=== PATIENT | male | born 2005 | race Caucasian/White ===

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

== ENCOUNTER 2025-07-04 16:40 | Emergency (ER) | payer OTHER, SELFPAY ==
[2025-07-04 16:41] VITALS: BP 113/83; PULSE 103; RESP 14; TEMP 36.6; O2SAT 98
--- NOTE | 2025-07-04 16:44 | ED.EXTPRO ---
HPI - Extremity Problem General Chief complaint: Extremity Problem,Nontraumatic Stated complaint: ingrown toe nail Time Seen by Provider: 07/04/25 16:44 Source: patient Mode of arrival: ambulatory Limitations: no limitations History of Present Illness HPI Narrative: Patient is a 20-year-old male with a right great toe slight erythema and pain over last week. He is been cutting on the edges due to the pain and trying to remove some of the nail. All in all, the patient has great toe redness on the distal tip for the past week. MD Complaint: extremity pain (Right great toe distal tip) Onset (ago): week(s) (1) Pain Consistency: constant Location: right, lower extremity and toe (Great toe) Severity scale (1-10): 5 Quality: stabbing and sharp Radiation: distal Relieving factors: nothing Exacerbating factors: weight bearing, walking and palpation Associated symptoms: denies other symptoms Context: recent travel and recent surgery/procedure Related Data Allergies Allergy/AdvReac Type Severity Reaction Status Date / Time fluoxetine Allergy Unknown Unknown Verified 07/04/25 16:42 Review of Systems Review of Systems: All systems reviewed & are unremarkable except as noted in HPI and below Constitutional: Constitutional: Reports no additional constitutional complaints Eyes: Eyes: Reports no additional eye complaints ENT: Reports system reviewed and no additional complaints, except as documented Cardiovascular: Cardiovascular: Reports no additional cardiovascular complaints Respiratory: Respiratory: Reports no additional respiratory complaints Gastrointestinal: Gastrointestinal: Reports no additional gastrointestinal complaints Genitourinary: Genitourinary: Reports no additional male genitourinary complaints Musculoskeletal: Musculoskeletal: Reports no additional musculoskeletal complaints Integumentary/Breasts: Skin/Breast: Reports system reviewed and no additional complaints, except as docu Neurologic: Reports system reviewed and no additional complaints, except as documented Psychiatric: Psychiatric: Reports no additional psychiatric complaints Endocrine: Endocrine: Reports no additional endocrine complaints Hematologic/Lymphatic: Hematologic/Lymphatic: Reports no additional hematologic/lymphatic complaints Allergic/Immunologic: Allergic/Immunologic: Reports no additional allergic/immunologic complaints Exam Const: General: healthy appearing Nutritional Appearance: well nourished Orientation/consciousness: patient oriented x3 HENMT: Head: normal to inspection Ears: external ears normal Face/Nose/Sinus: Normal external nose present Eyes: Conjunctivae: conjunctivae normal Pupils: Equal, round and reactive pupils present EOM: EOMs intact bilaterally Neck: Neck: normal visual inspection Chest: Chest palpation & inspection: normal inspection of the chest Resp: Effort & Inspection: normal respiratory effort, not labored and no retractions Auscultation: clear to auscultation bilaterally, no crackles and no rales Cardio: Rate: regular rate Rhythm: regular rhythm Heart sounds: no murmurs GI: Inspection: non-distended GI Palp: Yes Soft to palpation, Yes Tenderness to palpation present (GI) and Yes Guarding due to palpation present (GI) Auscultation: normal bowel sounds and Hypoactive bowel sounds present : General: Yes bladder normal to palpation Back/Spine/Pelvis: Back: no CVA tenderness Skin: General skin exam: normal color Rashes: no rashes Wounds: no wounds Neuro: General: patient oriented x3, moves all extremities and no meningeal signs Extrem: General: abnormal to inspection, no clubbing, cyanosis or edema and no pedal edema Other: Right great toe has erythema at the distal tip and around the edges distally of the nail with ingrown nail noted bilaterally and mild erythema without pus drainage or any major signs of infection at this time besides the cellulitis of the distal tip Psych: Mental Status: mental status grossly normal Affect: normal affect Attitude: cooperative Course Vital Signs Vital signs: Vital Signs Temperature 36.6 C 07/04/25 16:41 Pulse Rate 103 H 07/04/25 16:41 Respiratory Rate 14 07/04/25 16:41 Blood Pressure 113/83 07/04/25 16:41 Pulse Oximetry 98 07/04/25 16:41 Oxygen Delivery Room Air 07/04/25 16:41 Temperature 36.6 C 07/04/25 16:41 Pulse Rate 103 H 07/04/25 16:41 Respiratory Rate 14 07/04/25 16:41 Blood Pressure 113/83 07/04/25 16:41 Pulse Oximetry 98 07/04/25 16:41 Oxygen Delivery Room Air 07/04/25 16:41 MDM MDM Narrative Medical decision making narrative: Patient is a 20-year-old male with a right grade 2 ingrown toenail with localized redness and inflammation over the past week. We discussed about him seeing a associate project manager to have this area cleared and removed. Further we will do Augmentin for antibiotic coverage at this time. Differential Diagnosis Differential Diagnosis: Ingrown toenail, cellulitis Discharge Plan Discharge Clinical Impression: Ingrowing toenail of right foot Cellulitis of great toe Qualifiers: Laterality: right Qualified Code(s): L03.031 - Cellulitis of right toe Patient Disposition: Home Condition: Stable Instructions: Antibiotic Form, Ingrown Nail (ED) Additional Instructions: Please follow-up with the primary doctor in the next week. You will need a referral to a associate project manager that can remove toenails for ingrown toenails. Patient Language: Telugu Prescriptions: New amoxicillin-pot clavulanate [Augmentin] 500-125 mg tablet 1 tablet PO BID 7 Days Qty: 14 0RF Follow-up/Referrals: Andrew,OMAIRA Iglesias [Primary Care Provider] Time of Disposition: 16:57
--- OUTSIDE RECORDS SUMMARY | 2025-07-04 17:08 | XMS_ITS | Encounter Summary ---
Author Organization [facility] Address [address] [place] [address] Care Team Providers Care Residential Green Building Designer Name Role Phone Blayne Lovett MD Primary Care Provider [phone] Ravi Villatoro MD Primary Care Provider Encounter Details Date Type Department Care Team (Late st Contact Info) Description 12/29/2018 Abstract [facility] CONVERSION [address] [place] [address] , Generic Conversion, Social History Tobacco Use Types Packs/Day Years Used Date Smoking Tobacco: Never Assessed Sex and Gender Information Value Date Recorded Sex Assigned at Not on file 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
--- OUTSIDE RECORDS SUMMARY | 2025-07-04 17:08 | XMS_ITS | Clinical Summary ---
Author Organization [facility] Address [address] [place] [address] Care Team Providers Care Custody Officer Name Role Phone Ravi Villatoro MD Primary Care Provider [phone] Allergies No known active allergies Medications ondansetron (ZOFRAN-ODT) 4 MG disintegrating tablet Take 1 tablet (4 mg total) by mouth every 8 (eight) hours as needed for Nausea. 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 Myositis of right shoulder, unspecified myositis type 01/08/2020 Rhomboid pain 12/09/2019 Family History Medical History Relation Comments Hypertension Father No Known Problems Mother Relation Status Comments Father Alive Mother Alive Social History Tobacco Use Types Packs/Day Years Used Date Smoking Tobacco: Never Smokeless Tobacco: Never Tobacco Cessation:Counseling Given: Not Answered Alcohol Use Standard Drinks/Week Comments Yes 0 (1 standard drink = 0.6 oz pure alcohol) patient states he drinks at parties Sex and Gender Information Value Date Recorded Sex Assigned at Not on file 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 Gender Identity Not on file Sexual Orientation Not on file Last Filed Vital Signs Vital Sign Reading Time Taken Comments Blood Pressure 145/79 01/14/2023 1:00 PM CDT Pulse 84 01/14/2023 11:29 AM CDT Temperature 37.1 C (98.7 F) 01/14/2023 11:32 AM CDT Respiratory Rate 18 01/14/2023 11:29 AM CDT Oxygen Saturation 100% 01/14/2023 1:00 PM CDT Inhaled Oxygen Concentration - - Weight 63.5 kg (140 lb) 01/14/2023 11:29 AM CDT Height 182.9 cm (6') 01/14/2023 11:29 AM CDT Body Mass Index 18.99 01/14/2023 11:29 AM CDT Plan of Treatment Health Maintenance Due Date Last Done Comments Annual Physical 2007 Meningococcal B Vaccine (1 o f 2 - Standard) 2020 Hepatitis C 2022 DTaP, Tdap and Td Vaccines ( 1 - Tdap) 2023 Hepatitis B Vaccines (1 of 3 - 19+ 3-dose series) 2023 COVID-19 Vaccine (1 - 2024-2 6 season) 2025 Influenza Adult (#1) 2025 HPV Vaccines Completed 06/29/2016, 02/24/2016, 12/01/2015 Hepatitis A Vaccines Aged Out No long er eligible based on patient's age to complete this topic Meningococcal Vaccine Aged Out No hayes rose eligible based on patient's age to complete this topic Pneumococcal Vaccine: Pediatrics (0 to 5 Years) and At-Risk Patients (6 to 49 Years) Aged Out No longer eligible b ased on patient's age to complete this topic RSV Immunizations Under 20 Months Aged Out No longer eligible b ased on patient's age to complete this topic Insurance [employer] Care Teams Custody Officer Relationship Specialty Start Date End Date Ravi Villatoro MD [address] [place] [address] [phone] PCP - General FAMILY PRACTICE 12/10/20
[2025-07-04 17:10] VITALS: BP 113/83; PULSE 103; RESP 14; TEMP 36.6; O2SAT 98
== END 2025-07-04 17:10 | disposition home or self-care (01) ==
PROVIDERS: Emergency Provider Emergency Medicine; PCP Physician Assistant
DX: L60.0 Ingrowing nail (principal); L03.031 Cellulitis of right toe
CPT/HCPCS: 99283